=== PATIENT | female | born 1990 | race Caucasian/White ===

== ENCOUNTER 2019-04-06 11:47 | Outpatient (CLI) | payer OTHER ==
--- NOTE | 2019-04-08 00:37 | MRI Report ---
Reason: PAIN IN UNSPECIFIED KNEE Procedure Date: 04/06/2019 Accession Number: [id number] / [id number] Procedure: MRI - Knee RT W/O CPT Code: FULL RESULT: EXAM: RIGHT KNEE MRI WITHOUT CONTRAST EXAM DATE: 04/06/2019 01:07 PM CLINICAL HISTORY: Pain in unspecified knee. COMPARISON: None. TECHNIQUE: Multiplanar, multisequence T1-weighted and fluid-sensitive sequences of the knee without contrast. Other: None. FINDINGS: Bones: No fractures or subluxations. No marrow edema. No bone lesions. Articular Cartilage: Mild chondromalacia patellar apex. Medial Meniscus: The medial meniscus is intact. Lateral Meniscus: The lateral meniscus is intact. Cruciate Ligaments: The anterior and posterior cruciate ligaments are intact. Collateral Ligaments: The medial collateral and lateral collateral ligamentous structures are intact. Tendons: The quadriceps, patellar, semimembranosus, and popliteus tendons are unremarkable. Musculature: Mild edema popliteus muscle. Other: Moderate quantity of fluid patellar recesses. No popliteal cyst. No loose bodies. The medial and lateral retinacula are intact. The subcutaneous tissues and fat pads are unremarkable. IMPRESSION: 1. Negative for meniscus tear or internal derangement. 2. Moderate quantity of fluid patellar recesses. RADIA
== END 2019-04-06 11:48 | disposition home or self-care (01) ==
LOC: DI 11:47
PROVIDERS: ATTEND Physician Assistant
DX: M25.561 Pain in right knee (principal)

== ENCOUNTER 2020-04-18 08:18 | Outpatient (CLI) | payer OTHER ==
--- NOTE | 2020-04-20 08:23 | MRI Report ---
PROCEDURE: Cervical Spine W/O INDICATIONS: PARESTHESIA OF SKIN TECHNIQUE: Noncontrast sagittal T1 spin echo and T2 fast spin echo, sagittal STIR, foraminal oblique sagittal T2 fast spin echo, and axial gradient echo or T2 fast spin echo through the cervical spine. COMPARISON: None. FINDINGS: Image quality: Excellent. Alignment and Curvature: There is normal bony alignment. Bone Marrow: Marrow demonstrates normal overall signal. Spinal Cord: Visualized spinal cord has normal size and signal. There is no syrinx. Normal configur ation of the craniocervical junction with no cerebellar tonsillar herniation. Paraspinous Soft Tissues: No paravertebral masses. Prevertebral soft tissues are normal in thicknes s. From C2-C3 through C7-T1, there is no spinal canal or neural foraminal stenosis. No significant degen erative changes at these levels. IMPRESSION: Normal MRI of the cervical spine. Reviewed by: Shahab Munson MD on 04/20/2020 8:21 AM PDT Approved by: Shahab Munson MD on 04/20/2020 8:21 AM PDT Station ID: [id number]
--- NOTE | 2020-04-20 08:24 | MRI Report ---
PROCEDURE: Thoracic Spine W/O INDICATIONS: PARESTHESIA OF SKIN TECHNIQUE: Noncontrast sagittal T1 spine echo and T2 fast spin echo, sagittal STIR, axial T1 and T2 fast spin ec ho through the thoracic spine. COMPARISON: None. FINDINGS: Image quality: Excellent. Alignment and Curvature: There is normal bony alignment. Bone Marrow: Marrow is of normal overall signal. No acute vertebral body compression fractures. Spinal Cord: Visualized spinal cord is normal in size and signal. There is no syrinx. No unenhanced evidence of significant intradural pathology. Paraspinous Soft Tissues: No paravertebral masses. Miscellaneous: No spinal canal or neural foraminal stenosis at any level of the thoracic spine. No si gnificant degenerative changes of the intervertebral discs, facets, or posterior elements. IMPRESSION: Normal MRI of the thoracic spine. Reviewed by: Shahab Munson MD on 04/20/2020 8:22 AM PDT Approved by: Shahab Munson MD on 04/20/2020 8:22 AM PDT Station ID: [id number]
--- NOTE | 2020-04-20 08:25 | MRI Report ---
PROCEDURE: Lumbar Spine W/O INDICATIONS: PARESTHESIA OF SKIN TECHNIQUE: Noncontrast sagittal T1 spin echo and T2 fast echo, sagittal STIR, axial T1 and T2 fast spin echo thr ough the lumbar spine. In cases with scoliosis, additional coronal T2 fast spin echo may be performe d. COMPARISON: None. FINDINGS: Image quality: Excellent. Alignment and Curvature: There is normal bony alignment. Bone Marrow: Marrow is of normal overall signal. No acute vertebral body compression fractures. Spinal Cord: Normal position and appearance of the conus. Visualized distal thoracic cord demonstrate s normal signal and size. Paraspinous Soft Tissues: No paravertebral masses. T12-L1: Normal in appearance. L1-L2: Normal in appearance. L2-L3: Normal in appearance. L3-L4: Normal in appearance. L4-L5: Normal in appearance. L5-S1: Normal in appearance. IMPRESSION: Normal MRI of the lumbar spine. Reviewed by: Shahab Munson MD on 04/20/2020 8:23 AM PDT Approved by: Shahab Munson MD on 04/20/2020 8:23 AM PDT Station ID: [id number]
== END 2020-04-18 08:19 | disposition home or self-care (01) ==
LOC: DI 08:18
PROVIDERS: ATTEND General Practice
DX: R20.2 Paresthesia of skin (principal)
CPT/HCPCS: 72141; 72146; 72148